=== PATIENT | female | born 1980 | race Caucasian/White ===

== ENCOUNTER → 2017-10-17 | Day surgery (SDC) | payer BC ==
--- NOTE | 2017-10-16 17:04 | MH ---
cc: ALVIN PAINTER M.D. DATE OF ADMISSION 10/17/2017 HISTORY OF THE PRESENT ILLNESS The patient is a 37-year-old white female, G0 with one adopted child who started her care with me in June of 2017. She presented complaining of a several-month history of much heavier menses with passage of large clots and increased pain. She also reported some break through bleeding episodes. She has denied this previously ever happening. We performed an endometrial biopsy for her in the office which came back with a benign ECC and a benign endometrium. We also on exam felt that her uterus was normal size and shape. We did not palpate any fibroids. A TSH was done which was normal. An FSH was premenopausal. We talked about different treatment options for her heavy painful periods and she was most interested in an ablation. I talked with her about doing an ablation in the hospital because of her nulligravida status it might be a little too painful in the office and she desires to proceed with that. PAST MEDICAL HISTORY 1. On the patient is endometriosis. 2. Renal lithiasis. 3. Anxiety disorder PAST SURGICAL HISTORY 1. Breast reduction. 2. Laparoscopy. 3. Lithotripsy x3. MEDICATIONS Currently are: Lexapro. ALLERGIES PENICILLIN AND MORPHINE. SOCIAL HISTORY One-half pack a day of tobacco. Occasional alcohol. No drug use. She is and works at a [employer]. FAMILY HISTORY Coronary artery disease and brain cancer. GYNECOLOGIC HISTORY No abnormal Pap smear or STDs. PHYSICAL EXAMINATION VITAL SIGNS: Her weight is 214, height 5 feet 5 inches, blood pressure 130/90, pulse 70. BREASTS: Without masses, nodes or discharge. CHEST: Clear to auscultation bilaterally. CARDIOVASCULAR: Regular rate and rhythm without murmur or gallop. ABDOMEN: Soft, nontender, nondistended. No hepatosplenomegaly. No CVA tenderness. No hernias noted. PELVIC: Vulva, vagina normal. External female genitalia without lesions. Vaginal vault without lesions. Cervix without lesions. Uterus normal size. Normal contour. No adnexal masses. ASSESSMENT/PLAN On the patient include menorrhagia and dysmenorrhea. Plan will be for a NovaSure endometrial ablation. MD AMBER Castañeda/KK /4:43 PM /4:50 PM
[~2017-10-17] VITALS: Ht 165.1 cm; Wt 96.9 kg
[~2017-10-17] MED LIST: *MEPERIDINE 25 MG INJ VIAL PERIprocedural Use ONLY ONE; ACETAMINOPHEN 1000 MG/100 ML 100 ML IV ONE; CHLORHEXIDINE GLUCONATE 2 % 1 PACK (2 CLOTHS) TOPICAL PRN; DEXAMETHASONE SOD PHOS 4 MG/ML VIAL IV ONE; DO NOT ADM ANY ANTICOAGULANT DRUGS PRN; FAMOTIDINE 20 MG/2 ML VIAL ONE; KETOROLAC TROMETHAMINE 30 MG/ML (IVP) VIAL IV PUSH ONE; LACTATED RINGER'S 1000 ML IV PRN; LEXA10TA PO; LIDOCAINE HCL 1% PF 5 ML SYRINGE OTHER ONE; METOPROLOL TARTRATE 25 MG TAB PO PRN; MIDAZOLAM HCL 2 MG/2 ML VIAL ONE; ONDANSETRON HCL 4 MG/2 ML VIAL IV ONE; ONDANSETRON INJ 8 MG in DEXTROSE 5% IN WATER INJ 50 ML IV PRN; POVIDONE IODINE 5% (ANTISEPSIS KIT) 4 APPLICATIONS EACH NARE PRN; PROPOFOL 200 MG/20 ML AMP IV ONE; SODIUM CHLORID 0.9% 500 ML IV PRN; oxyCODONE/ACETAMINOPHEN 5 MG/325 MG TAB ONE; oxyCODONE/ACETAMINOPHEN 5 MG/325 MG TAB PO PRN
[2017-10-17 12:10] VITALS: BP 132/78; PULSE 57; RESP 16; TEMP 98.2; O2SAT 99
--- NOTE | 2017-10-18 09:33 | MP ---
cc: ALVIN PAINTER M.D. DATE OF SURGERY 10/17/2017 PREOPERATIVE DIAGNOSIS Menorrhagia with dysmenorrhea. POSTOPERATIVE DIAGNOSIS Menorrhagia with dysmenorrhea. PROCEDURE PERFORMED NovaSure endometrial ablation. PAYMENT COLLECTOR Dr. Alvin Painter ANESTHESIA General by facemask FINDINGS IN SURGERY Included a small uterine cavity, no suspicious tissue identified. BLOOD LOSS Minimal COMPLICATIONS None PROCEDURE IN DETAIL After proper consents were obtained, the patient was taken to the operating room where general by face mask anesthesia was applied. She was then placed in the dorsolithotomy position and sterilely prepped and draped. At this time, a weighted speculum was placed in the vaginal vault. The anterior lip of the cervix was grasped with a single-tooth tenaculum. We sounded the cervix to be about 3 cm., the overall length of the uterus at 8 cm, so the uterine length itself is 5 cm. We dilated the cervix with Hegar dilators up to about #18. We then placed the hysteroscope into the uterine cavity using normal saline as a distending medium which revealed a very small cavity. No suspicious tissue. At this time, we opened the NovaSure, made sure it was intact. We placed it into the uterine cavity and had a uterine length of 2.9 cm. We performed our ablation without difficulty. We removed our instruments. Counts were correct. Hemostasis assured and the patient was stable to the recovery room. MD AMBER Castañeda/NADINE /11:08 AM /9:25 AM
== END | disposition home or self-care (01) ==
LOC: HSDC 06:46
PROVIDERS: ATTEND Obstetrics & Gynecology
DX: N92.0 Excessive and frequent menstruation with regular cycle (principal); N20.0 Calculus of kidney; F41.9 Anxiety disorder, unspecified; F17.200 Nicotine dependence, unspecified, uncomplicated
CPT/HCPCS: 00952; 58563; 84703; J0131; J2175; J2250; J3010; J7120; J1100; J1885; J2405